=== PATIENT | male | born 1955 | race American Indian/Alaskan Native ===

== ENCOUNTER 2018-10-29 07:52 | Outpatient (CLI) | payer MEDICAID | END 2018-10-29 07:53 | disposition home or self-care (01) | LOC: PET-BROA 07:52 | DX: C61 Malignant neoplasm of prostate (principal) ==

== ENCOUNTER 2018-12-19 05:12 | Outpatient (CLI) | payer MEDICAID | END 2018-12-19 05:13 | disposition home or self-care (01) | LOC: PET-BROA 05:12 | DX: C61 Malignant neoplasm of prostate (principal); C90.00 Multiple myeloma not having achieved remission ==